=== PATIENT | female | born 2000 ===

== ENCOUNTER 2021-11-12 09:52 | Inpatient (IN) | payer SELFPAY ==
[2021-11-12] MEDS ORDERED: CARBOPROST TROMETHAMINE 250 MCG/1 ML INJ IM PRN (12:15)
--- NOTE | 2021-11-12 12:23 | History and Physical Report ---
History of Present Illness Date of examination: 11/12/21 Date of admission: 11/12/21 Chief complaint: painful ctx History of present illness: at 39.0wks with records from Dr[facility]. Pt is a walk-in pt. pt gives c/o painful contraction and leaking fluid since 1am today. Pt admits to movement and would like pain med via the IV. Pt also admits to vag bleed and denies headache. Past History Past Medical History: no pertinent history Past Surgical History: no surgical history Social history: no significant social history - Obstetrical History Expected Date of Delivery: 11/19/21 Actual Gestation: 39 Week(s) 0 Day(s) : 3 Hx # Term Pregnancies: 2 Number of Living Children: 2 Review of Systems All systems: negative (painful ctx) - Vital Signs Vital signs: Vital Signs Pulse Pulse Ox 90 100 11/12/21 10:58 11/12/21 10:58 Temp Pulse Resp BP Pulse Ox 83 113/72 99 11/12/21 12:13 11/12/21 11:01 11/12/21 12:13 - Physical Exam Breasts: Positive: deferred Cardiovascular: Regular rate Lungs: Positive: Normal air movement Abdomen: Positive: normal appearance Genitourinary (Female): Positive: normal external genitalia Uterus: Positive: enlarged (non-tender, gravid) - Obstetrical FHR: category 1 Uterine Contraction Monitor Mode: External Cervical Dilatation: 5 (previously 3cm by triage nurse) Cervical Effacement Percentage: 90 station: 0 Uterine Contraction Pattern: Irregular Uterine Contraction Intensity: Moderate Results All other labs normal. Assessment and Plan Term in latent labor with painful ctx, small vag bleed seen 1. Admit to labor and delivery 2. May have IV pain med now and later with epidural if IV not effective 3. Will send ROM plus with pt c/o leakage of fluid. GBS neg seen in records 4. Plan of care discussed with pt. Expect ; all questions encouraged and answered
[2021-11-12] MEDS ORDERED: OXYTOCIN DRIP 30 UNITS/500 ML BAG IV SCH ×2 (13:00)
[2021-11-12 13:43] LABS: Hematocrit 36.5 % (30.3-42.9); Hemoglobin 12.3 gm/dl (10.1-14.3); Mean Corpuscular HGB Conc 34 % (30-34); Mean Corpuscular Volume 88 fl (79-97); Platelet Count 195 K/mm3 (140-440); Red Blood Count 4.15 M/mm3 (3.65-5.03); Red Cell Distribution Width 13.9 % (13.2-15.2)
[2021-11-12] MEDS ORDERED: METHYLERGONOVINE MALEATE 0.2 MG/ML VIAL IM PRN (14:00)
[2021-11-12] MEDS ORDERED: PROMETHAZINE 25 MG TAB PO PRN ×2 (14:00→19:15)
[2021-11-12] MEDS ORDERED: NalbUPHINE 10 MG/1 ML INJ IV PRN (14:00)
[2021-11-12] MEDS ORDERED: LACTATED RINGERS 1,000 ML IV SCH (14:00)
[2021-11-12] MEDS ORDERED: LOPERAMIDE 2 MG CAP PO PRN (14:00)
[2021-11-12] MEDS ORDERED: fentaNYL 100 MCG/2 ML INJ IV PRN (14:00)
[2021-11-12] MEDS ORDERED: ePHEDrine SULFATE 50 MG/1 ML INJ IV PRN (14:00)
[2021-11-12] MEDS ORDERED: ACETAMINOPHEN 325 MG TAB PO PRN ×2 (14:00→19:15)
[2021-11-12] MEDS ORDERED: miSOPROStol 200 MCG TAB PR PRN (14:00)
[2021-11-12] MEDS ORDERED: LIDOCAINE (2%) 20 MG/1 ML VIAL 20 ML MDV INFILTRATI ONE ×2 (14:00→16:14)
[2021-11-12] MEDS ORDERED: OXYTOCIN 10 UNIT/1 ML INJ IM PRN (14:00)
[2021-11-12] MEDS ORDERED: TERBUTALINE 1 MG/1 ML INJ SUB-Q PRN (14:00)
--- NOTE | 2021-11-12 14:42 | Event Note ---
Date: 11/12/21 pt evaluated and pelvic unchanged. Will augment with IV pitocin, and AROM and nurse Cleopatra notified of my plan of care. FHR category I and IV heplock noticed. amniotic sac felt and same bulging.
--- NOTE | 2021-11-12 15:07 | Event Note ---
Date: 11/12/21 Pt evaluated and historic interpreter #[id number] used to educate pt of AROM procedure, risks, benefits and alternatives and same done with large amount of meconium having particulate matter. Nurse Cleopatra present and NICU to present at delivery. FHR category I tracing remains. IV Pitocin at 2mu/min. Pt offered epidural and same declined. May have IV pain med prn if FHR category I. Pelvic 590/0 and IUPC placed. Expect .
[2021-11-12] MEDS ORDERED: METHYLERGONOVINE MALEATE 0.2 MG/ML VIAL IM ONE (16:14)
[2021-11-12] MEDS ORDERED: miSOPROStol 200 MCG TAB ONE (16:14)
--- NOTE | 2021-11-12 16:31 | Procedure Note ---
OB Delivery Note - Delivery Date of Delivery: 11/12/21 Surgeon: USRENDRA WEATHERS Estimated blood loss: 200cc - Vaginal Delivery presentation: vertex Delivery position: OA Intrapartum events: other(please specify) (thick meconium stained fluid with particulate matter) Delivery induction: none Delivery augmentation: rupture of membranes, pitocin Delivery monitor: external FHT, external uterine, internal uterine Route of delivery: Delivery placenta: spontaneous Delivery cord: 3 umbilical vessels Episiotomy: none Delivery laceration: 1st degree (left labia) Delivery repair: chromic Anesthesia: local Delivery comments: SAVD of viable male infant, uncomplicated. NICU present for delivery with thick meconium stained fluid. Spontaneous delivery of intact placenta with 3vessel cord. Bimanual massage with fundus firm. Lidocaine used to repair 1st left labial laceration using 2-0 chromic with figure of 8 suture x1 and interrupted suture x1. Visualization of cervix showed no cervical lacerations. - A at 1 minute: 8 at 5 minutes: 9 Gender: Male (wt 3630g; Thick meconium stained fluid)
[2021-11-12] MEDS ORDERED: ERYTHROMYCIN 5 MG/1 GM OPHTH OINT ONE (16:48)
[2021-11-12] MEDS ORDERED: diphenhydrAMINE 25 MG CAP PO PRN (19:15)
[2021-11-12] MEDS ORDERED: ONDANSETRON 4 MG/2 ML INJ IV PRN (19:15)
[2021-11-12] MEDS ORDERED: WITCH HAZEL/ GLYCERIN PAD TP PRN (19:15)
[2021-11-12] MEDS ORDERED: PROMETHAZINE 25 MG RECT SUPP PR PRN (19:15)
[2021-11-12] MEDS ORDERED: oxyCODONE /ACETAMINOPHEN 5-325MG TAB PO PRN (19:15)
[2021-11-12] MEDS ORDERED: LANOLIN/ZINC/DIMETHICONE (LANSINOH) 7 GM TP PRN (19:15)
[2021-11-12] MEDS ORDERED: MAGNESIUM HYDROXIDE (MOM) ORAL LIQD UDC PO PRN (19:15)
[2021-11-12] MEDS ORDERED: MINERAL OIL 30 ML ORAL LIQD PO PRN (22:00)
[2021-11-12] MEDS: IBUPROFEN 800 MG TAB PO SCH (22:53)
[2021-11-13] MEDS: IBUPROFEN 800 MG TAB PO SCH ×2 (07:01→12:14)
[2021-11-13 08:17] LABS: Hematocrit 33.1 % (30.3-42.9); Hemoglobin 10.9 gm/dl (10.1-14.3); Mean Corpuscular HGB Conc 33 % (30-34); Mean Corpuscular Volume 89 fl (79-97); Platelet Count 189 K/mm3 (140-440); Red Blood Count 3.71 M/mm3 (3.65-5.03); Red Cell Distribution Width 14.3 % (13.2-15.2)
[2021-11-13] MEDS ORDERED: PRENATAL VIT27-FE FUMARATE-FOLIC ACID VIT TAB PO SCH (10:00)
--- NOTE | 2021-11-13 11:11 | Progress Note ---
Assessment and Plan A: PP Day #1 Stable P: Follow Routine Orders D/C home today per patient request RTO in 6 Weeks Subjective - Subjective Date of service: 11/13/21 Patient reports: appetite normal, voiding normally, pain well controlled, flatus, bowel movement, ambulating normally : doing well, bottle feeding (and ) Objective - Vital Signs Latest vital signs: Vital Signs Temp Pulse Resp BP BP Pulse Ox Pulse Ox 11/13/21 08:10 100 11/13/21 07:18 97.8 F 57 L 17 91/55 97 11/13/21 00:23 98.2 F 80 18 97/63 96 11/12/21 20:15 100 11/12/21 20:00 98.2 F 92 H 18 106/65 100 11/12/21 18:50 98.2 F 69 20 106/62 100 11/12/21 18:06 84 108/67 11/12/21 17:51 82 105/67 11/12/21 17:34 76 116/60 11/12/21 17:26 87 99 11/12/21 17:21 73 98 11/12/21 17:16 73 99 11/12/21 17:11 83 100 11/12/21 17:06 77 99 11/12/21 17:01 78 99 11/12/21 16:56 92 H 100 11/12/21 16:51 82 100 11/12/21 16:46 75 100 11/12/21 16:41 73 99 11/12/21 16:36 81 99 11/12/21 16:31 73 100 11/12/21 16:26 71 100 11/12/21 16:21 72 100 11/12/21 16:16 104 H 100 11/12/21 16:10 90 100 11/12/21 16:05 79 100 11/12/21 16:00 82 100 11/12/21 15:55 81 100 11/12/21 15:50 76 100 11/12/21 15:45 79 100 11/12/21 15:40 70 96 11/12/21 15:36 77 94 11/12/21 15:35 69 98 11/12/21 15:30 88 97 11/12/21 15:25 77 99 11/12/21 15:24 87 92 11/12/21 15:20 85 99 05 15:15 93 H 99 05 15:10 75 99 05 15:05 86 99 05 15:00 93 H 99 11/12/21 14:55 99 H 98 11/12/21 14:50 99 H 98 11/12/21 14:45 96 H 99 11/12/21 14:40 89 99 11/12/21 14:31 93 H 99 11/12/21 14:26 96 H 99 11/12/21 14:21 93 H 99 05 14:16 93 H 99 11/12/21 14:11 97 H 99 11/12/21 14:06 92 H 99 11/12/21 14:01 81 99 05 13:56 79 100 05 13:51 82 97 11/12/21 13:46 74 100 11/12/21 13:41 74 100 05 13:36 76 100 05 13:31 86 99 05 13:09 86 99 11/12/21 13:04 95 H 99 11/12/21 12:59 101 H 99 11/12/21 12:54 87 98 11/12/21 12:49 96 H 99 11/12/21 12:45 84 16 116/75 100 05 12:44 84 116/75 100 05 12:33 84 99 11/12/21 12:28 90 96 11/12/21 12:23 90 99 11/12/21 12:18 86 98 11/12/21 12:13 83 99 11/12/21 12:08 84 97 05 12:03 85 98 05 11:58 80 98 05 11:53 82 99 05 11:48 92 H 98 11/12/21 11:43 74 100 05 11:38 87 98 05 11:33 92 H 97 05 11:28 78 97 05 11:23 98 H 97 11/12/21 11:18 81 97 05 11:13 83 98 05 11:08 101 H 98 05 11:03 78 98 05 11:01 80 113/72 11/12/21 10:58 90 100 Intake and Output 11/12/21 11/13/21 11/13/21 22:59 06:59 14:59 Intake Total 0.9 360 Output Total 100 400 Balance -99.1 -400 360 Intake: IV 0.9 PITOCin/NS 30 UNIT/500ML 0.9 30 units In 500 ml @ 2 mls/hr IV TITR MARLO Rx#: [id number] Oral 240 Intake, Free Water 120 Output: Urine 100 400 Void 100 400 Other: Total, Intake Amount 240 Total, Output Amount 100 400 # Voids Void 2 2 Estimated Blood Loss 200 - Exam Breasts: Present: normal Cardiovascular: Present: Regular rate Lungs: Present: Clear to auscultation, Normal air movement Abdomen: Present: normal appearance, soft, normal bowel sounds Uterus: Present: normal, firm, fundal height below umbilicus Extremities: Present: normal - Labs Labs: Abnormal lab results 11/12/21 11/13/21 Range/Units 13:00 08:09 WBC 12.2 H 13.1 H (4.5-11.0) K/mm3
--- NOTE | 2021-11-13 11:13 | Discharge Summary ---
Providers - Providers Date of Admission: 11/12/21 09:53 Attending physician: SURENDRA WEATHERS 11/12/21 19:15 Consult to Industrial Maintenance Tech [CONS] Routine Reason For Exam: assistance with , SNS Primary care physician: SURENDRA WEATHERS Hospitalization Reason for admission: active labor Delivery: Episiotomy: none Laceration: 1st degree Other procedures: none complications: none Discharge diagnosis: IUP at term delivered [place] baby: male Condition at discharge: Good Disposition: 01 HOME / SELF CARE / HOMELESS Plan - Provider Discharge Summary Activity: routine, no sex for 6 weeks, no heavy lifting 4 weeks, no strenuous exercise Diet: routine Instructions: routine Additional instructions: [] Smoking cessation referral if applicable(refer to patient education folder for contact #) [] Refer to [facility] Booklet Call your doctor immediately for: * Fever > 100.5 * Heavy vaginal bleeding ( >1 pad per hour) * Severe persistent headache * Shortness of breath * Reddened, hot, painful area to leg or breast * Drainage or odor from incision. * Keep incision clean and dry at all times and follow doctor's instructions regarding bathing/showering - Follow up plan Follow up: SURENDRA WEATHERS MD [Primary Care Provider] - 6 Weeks
[2021-11-13 16:33] VITALS: BP 106/60
== END 2021-11-13 13:29 | disposition home or self-care (01) | DRG 807 ==
LOC: TRG 09:52 → APU 09:53 → LD 09:53 → TRG 14:44 → OB 18:19
PROVIDERS: ADMIT Obstetrics & Gynecology; ATTEND Obstetrics & Gynecology
PROC: 10E0XZZ Delivery of Products of Conception, External Approach (ICD-10-PCS; principal; 2021-11-12)
PROC: 10907ZC Drainage of Amniotic Fluid, Therapeutic from Products of Conception, Via Natural or Artificial Opening (ICD-10-PCS; 2021-11-12)
PROC: 0HQ9XZZ Repair Perineum Skin, External Approach (ICD-10-PCS; 2021-11-12)
DX: O77.0 Labor and delivery complicated by meconium in amniotic fluid (principal); Z37.0 Single live birth; Z3A.39 39 weeks gestation of pregnancy; O70.0 First degree perineal laceration during delivery; Z20.822 Contact with and (suspected) exposure to COVID-19
CPT/HCPCS: 36415; 85027; 86592; 86850; 86900; 86901; 99211; G0378; G0463; J2590; J3010; J7120